=== PATIENT | female | born 1990 | race Asian ===

== ENCOUNTER → 2019-08-04 | Outpatient (CLI) | payer OTHER | LOC: M LABSMTC 13:52 | PROVIDERS: ATTEND Family Medicine | DX: Z11.59 Encounter for screening for other viral diseases (principal); Z20.828 Contact with and (suspected) exposure to other viral communicable diseases ==

== ENCOUNTER → 2019-12-04 | Outpatient (CLI) | payer OTHER, SELFPAY | LOC: M LABSMTC 13:35 | PROVIDERS: ATTEND Pediatrics | DX: Z11.59 Encounter for screening for other viral diseases (principal); Z20.828 Contact with and (suspected) exposure to other viral communicable diseases | CPT/HCPCS: C9803; U0003 ==

== ENCOUNTER → 2020-03-18 | Outpatient (CLI) | payer SELFPAY | LOC: M LABSMTC 12:22 | PROVIDERS: ATTEND Pediatrics | DX: Z20.828 Contact with and (suspected) exposure to other viral communicable diseases (principal) ==